=== PATIENT | female | born 1950 | race African-American/Black ===

== ENCOUNTER 2019-04-16 09:16 | Inpatient (IN) ==
--- NOTE | 2019-04-16 09:19 | PROVIDER DOCUMENTATION ---
HPI-General Adult - General Stated Complaint: V/D Time Seen by Provider: 04/16/19 09:18 Source: patient Allergies/Adverse Reactions: Patient Allergies Allergy/AdvReac Type Severity Reaction Status Date / Time No Known Allergies Allergy Verified 09/09/14 08:38 Home Medications: Home Medication List Medication Instructions Recorded Confirmed Last Taken Type Enalapril/Hydrochlorothiazide 0.5 tab PO QPM 09/29/12 09/10/14 09/10/14 05:00 History [Enalapril-Hctz 10-25 mg Tablet] Ergocalciferol (Vitamin D2) 50,000 unit PO Q7D 09/29/12 09/10/14 09/05/14 History [Vitamin D] Fexofenadine [Josephine] 180 mg PO PRN PRN 09/29/12 09/09/14 09/26/12 06:00 History Levothyroxine [Synthroid] 100 microgm PO QAM 09/29/12 09/10/14 09/09/14 History Metoprolol Succinate [Toprol Xl] 50 mg PO QPM 09/29/12 09/10/14 09/10/14 05:00 History Multivitamin with Minerals [One 1 each PO QAM 09/29/12 09/10/14 09/09/14 History Daily 50 Plus] Acetaminophen/Diphenhydramine 1 each PO HS 09/09/14 09/09/14 Unknown History [Tylenol Pm] Magnesium Cl D.r. [Slow-Mag] 64 mg PO BID #0 tablet 09/10/14 Unknown Rx Omeprazole 40 mg PO DAILY #0 capsule. 09/10/14 Unknown Rx Zinc 50 mg PO DAILY #0 tablet 09/10/14 Unknown Rx - History of Present Illness -Gen Adult Nature of Presenting Problems: Pt. is 68 yof that presents with c/o abd pain with N/V that began yesterday. Pt. reports some diarrhea and cannot remember her last normal BM. She reports not taking her BP medications this morning. She denies any other complaints. Location of Pain/Injury: reports: abdomen. denies: none, head, face, mouth, neck, chest, upper extremity, hand(s), back, pelvis, genitalia, lower extremity, feet, upper body, lower body, generalized, other Pain Radiation: reports: no radiation. denies: arm(s), back, buttocks, chest, epigastric, feet, groin, jaw, flank (L), legs (lower), LLQ, LUQ, neck, periumbilical, flank (R), RLQ, RUQ, shoulder(s), scapula, scrotal, sternal notch, suprapubic, legs (upper), urethral, vaginal, other Quality of Pain: reports: aching. denies: burning, pressure, tightness Severity: reports: moderate. denies: mild, severe Onset/Duration: reports: gradual, 24 hours ago Timing: reports: still present. denies: improving, intermittent, getting worse Context/Activities at Onset: reports: none. denies: light activity, moderate activity, vigorous activity, recent emotional stress, recent physical stress, recent trauma history, possible bad food, cold exposure, eating, out of country travel, rest, sleep, sexual activity, other Modifying Factors: improves with: nothing Associated Symptoms: reports: diarrhea, nausea, vomiting. denies: denies symptoms, anxiety, arm pain, back/neck pain, chest pain, constipation, cough, diaphoresis, dizziness, EENT symptoms, fatigue, fever/chills, genitourinary problems, headaches, heartburn, joint pain, loss of appetite, malaise, muscle aches, sinus congestion/drainage, rash, seizure, shortness of breath, sensory/motor loss, pain with inspiration, swelling/mass in abdomen, syncope, weakness, trouble walking, other Similar Symptoms Previously?: Yes Recently seen or treated by another doctor?: No Review of Systems - Adult - REVIEW OF SYSTEMS - ADULT Constitutional: reports: no symptoms reported Eyes: reports: no symptoms reported Ears, Nose, Mouth & Throat: reports: no symptoms reported Cardiovascular: reports: no symptoms reported Respiratory: reports: no symptoms reported Gastrointestinal: reports: see HPI, abdominal pain, diarrhea, nausea, vomiting. denies: constipation, difficulty swallowing, rectal bleeding Genitourinary: reports: no symptoms reported Musculoskeletal: reports: no symptoms reported Integumentary: reports: no symptoms reported Neurological: reports: no symptoms reported Psychiatric: reports: no symptoms reported Past History - Adult - PAST MEDICAL HISTORY-ADULT Review of Records: reports: Old Records Reviewed, Nursing Assessment Review, Medications Reviewed, Social history reviewed & non-contributory. - IMMUNIZATION STATUS Childhood Immunizations: See Nurse Assessment Flu Vaccine: See Nurse Assessment - FAMILY HISTORY Family History: reviewed, not pertinent - SOCIAL HISTORY Smoking: denies Physical Exam-General - PHYSICAL EXAM-ADULT Initial Vital Signs Reviewed: Yes - CONSTITUTIONAL General Appearance: alert, mild distress, obese. negative: anxious, slow to respond, obtunded, combative - EYES Eyes: PERRL/EOMI, pink conjunctivae - HEAD, EARS, NOSE, MOUTH & THROAT HENMT: normocephalic/atraumatic, moist mucous membranes - NECK Neck: non-tender, full range of motion, supple, normal inspection - RESPIRATORY Respiratory: lungs clear, normal breath sounds - CARDIOVASCULAR Cardiovascular: normal peripheral pulses, regular rate, rhythm, no edema - GASTROINTESTINAL (ABDOMEN) Abdominal Exam: soft, abnormal bowel sounds (hypoactive), tenderness (RUQ pain), hernia (Large ventral). negative: rigid, rebound, mass - LYMPHATIC Lymphatic: no adenopathy, axilla node tender, cervical node tenderness - MUSCULOSKELETAL Back Exam: normal inspection, no CVA tenderness, no vertebral tenderness Extremity: normal range of motion, non-tender, normal gait, normal inspection. negative: erythema, inflammation, swelling, tenderness Peripheral Pulses: radial (R): 2+, radial (L): 2+ - SKIN Integumentary: normal color, normal turgor, warm/dry - NEUROLOGIC Neurologic: grossly normal, no motor/sensory deficits - PSYCHIATRIC Psych/Mental Status: normal mood/affect, normal thought content, normal thought process, oriented x 3. negative: anxious, paranoid, tearful Progress - PLAN OF CARE/RESULTS Progress/Plan/Lab Results: Orders Category Date Time Status Saline Loc NOW Care 04/16/19 09:18 Ordered CBC WITH ELECTRONIC DIFF [HEME] Stat Lab 04/16/19 09:18 Uncollected CK PROFILE [SP CHEM] Stat Lab 04/16/19 09:18 Uncollected COMPREHENSIVE METABOLIC PANEL [CHEM] Stat Lab 04/16/19 09:18 Uncollected LIPASE [CHEM] Stat Lab 04/16/19 09:18 Uncollected URINALYSIS W/POSS RFLX CULT [URINALYSIS] Stat Lab 04/16/19 09:18 Uncollected Laboratory Tests 04/16/19 04/16/19 10:15 10:15 WBC 13.03 H RBC 4.97 Hgb 14.8 Hct 42.8 MCV 86.1 MCH 29.8 MCHC 34.6 RDW Std Deviation 13.2 Plt Count 359 MPV 9.5 Immature Gran % (Auto) 0.2 Neut % (Auto) 84.7 H Lymph % (Auto) 11.4 L [place] % (Auto) 3.6 Eos % (Auto) 0.0 Baso % (Auto) 0.1 Immature Gran # (Auto) 0.02 Neut # (Auto) 11.05 H Lymph # (Auto) 1.48 [place] # (Auto) 0.47 Eos # (Auto) 0.00 Baso # (Auto) 0.01 Sodium 135 L Potassium 3.6 Chloride 93 L Carbon Dioxide 22 L Anion Gap 20 BUN 18 Creatinine 1.1 H Estimated GFR/1.73 m2 60 BUN/Creatinine Ratio 16 Glucose 322 H Calculated Osmolality 284 Calcium 9.0 Total Bilirubin 0.50 AST 19 ALT 17 Alkaline Phosphatase 98 Creatine Kinase 104 Total Protein 8.1 Albumin 4.7 Globulin 3.4 Albumin/Globulin Ratio 1.4 Lipase 19 Sepsis protocol was ordered stating I was notified however I was not notified. I let the charge nurse know. Result Diagrams: 04/16/19 10:15 04/16/19 10:15 - XRAY 1 XRAY Study: Chest, Abdomen ([facility] - [address] [facility], [address] [address] [facility] - [address] [place] [address] Department of Imaging Patient: VIVIANA COELHO Date: 04/16/19MR#: [id number] : 1950DM Status: PRE ERAcct#: [id number] Age/Sex: 68/FRoom/Bed: Loc: ED Ordering Physician: Salud Davalos Family Physician: Amrik Tapia DO Reason for Procedure: abd pain Signed EXAM: FLAT/UPRIGHT ABD/1 VIEW CHEST 04/16/2019 HISTORY: abd pain TECHNIQUE: Flat and upright abdomen with PA chest COMMENT: There is some stool in the colon. The stomach is distended with gas. There is no small bowel dilatation and no evidence of organomegaly or mass is otherwise present. There is atelectasis present in the left lower lobe above the diaphragm. There are no previous radiographs available for comparison. IMPRESSION: The possibility of gastroparesis or gastric outlet obstruction cannot be excluded. Left lower lobe atelectasis. Electronically signed by Odell Hartmann 04/16/2019 10:11 AM 04/16/19 1011 Interpreting Physician: Odell Hartmann MD Dictated Date/Time: 04/16/19 1010 cc: Salud Daavlos; Amrik Tapia DO) XRAY Interpretation: See note - CT/MRI 1 CT Study: Abdomen, Pelvis ([facility] - [address] [place], [place] [id number] [facility] - [address] [place] [address] Department of Imaging Patient: VIVIANA COELHO Date: 04/16/19MR#: [id number] : 1950DM Status: [facility]#: [id number] Age/Sex: 68/FRoom/Bed: Loc: ED Ordering Physician: Salud Davalos Family Physician: Amrik Tapia DO Reason for Procedure: abd pain ___ Signed EXAM: CT ABD/PELVIS W/IV CONT ONLY INDICATION: abd pain TECHNIQUE: This exam was performed using automated exposure control, adjustment of mA or kV according to patient size, and/or use of iterative reconstruction technique. COMPARISON: None. FINDINGS: There has been a prior cholecystecto my. There is probably minimal hepatic steatosis. The spleen, pancreas, and adrenal glands are unremarkable. There is a small simple appearing left renal cyst. The kidneys are essentially unremarkable, otherwise. The urinary bladder is unremarkable. The reproductive tract is unremarkable as imaged. There has been a prior gastric bypass. There is a large ventral abdominal wall hernia containing multiple loops of small bowel as well as a loop of colon. There are several moderately distended loops of small bowel in the abdomen that is suspicious for at least partial obstruction. Although the mouth of the hernial sac is fairly wide, the point of obstruction may be in the hernia. No focal bowel wall thickening is appreciated. The stomach is moderately distended. An IVC filter is in place. There is no evidence of acute osseous abnormality. IMPRESSION: Large ventral abdominal wall hernia with several moderately distended loops of small bowel that is suspicious for obstruction. Electroni philipp signed by Davon Veras 04/16/2019 12:21 PM 04/16/19 1221 Interpreting Physician: Davon Veras MD Dictated Date/Time: 04/16/19 1214 cc: Salud Davalos; Amrik Tapia DO) CT Results: See note - CONSULTS/PCP/HOSPITALIST Notification #1 *Consult/PCP/Hospitalist*: Dr. Gonzalez Time Discussed: 13:23 (Had not called back at time of admission) Reason/Comments: Consult #2 Consult: Alecia Condon Time Discussed: 13:22 Reason/Comments: Admission Consult Disposition: Will see in ED, Admit Departure - Departure Date of Disposition Decision: 04/16/19 Time of Disposition Decision: 13:15 DIAGNOSIS: Hernia Bowel obstruction Qualifiers: Intestinal obstruction type: unspecified Intestinal obstruction extent: unspecified extent Qualified Code(s): K56.609 - Unspecified intestinal obstruction, unspecified as to partial versus complete obstruction Abdominal pain Qualifiers: Abdominal location: right upper quadrant Qualified Code(s): R10.11 - Right upper quadrant pain Disposition: ADMITTED INPATIENT 09 Certified Medical Emergency: Emergent Condition: Stable Referrals and Follow-Ups: Amrik Tapia DO [Primary Care Provider] - - Critical Care Note This patient required my direct & personal management of CC.: No Attestation - Physician/ DENNY Attestation Patient care was provided by Advanced Practice Provider:: Yes Advanced Practice Provider:: Salud Davalos Advanced Practice Provider documentation review:: The Mid-level provider documentation, treatment plan and medical decision making was reviewed by the physician who agrees with all treatment and medical decision making by the MLP. The physician spent face to face time with patient:: No Advanced Practice Provider documentation review:: Supervising physician onsite and consulted in the evaluation and care of this patient. The physician did not have a face to face encounter with the patient.
[2019-04-16] MEDS ORDERED: ZOFRAN IV ONE (09:32)
[2019-04-16] MEDS ORDERED: NS 1,000 ML IV ONE (09:32)
--- NOTE | 2019-04-16 10:13 | Diag Imaging Result Doc PS360 ---
EXAM: FLAT/UPRIGHT ABD/1 VIEW CHEST 04/16/2019 HISTORY: abd pain TECHNIQUE: Flat and upright abdomen with PA chest COMMENT: There is some stool in the colon. The stomach is distended with gas. There is no small bowel dilatation and no evidence of organomegaly or mass is otherwise present. There is atelectasis present in the left lower lobe above the diaphragm. There are no previous radiographs available for comparison. IMPRESSION: The possibility of gastroparesis or gastric outlet obstruction cannot be excluded. Left lower lobe atelectasis. Electronically signed by Odell Hartmann 04/16/2019 10:11 AM
[2019-04-16 10:30] LABS: BASO# 0.01 X1000 (0.0-0.2); BASO% 0.1 % (0.0-0.8); HEMATOCRIT 42.8 % (37.0-47.0); HEMOGLOBIN 14.8 g/dL (12.0-16.0); IMM GRAN# 0.02 X1000 (0.0-0.04); IMM GRAN% 0.2 % (0.0-0.5); LYMPH# 1.48 X1000 (1.2-3.4); LYMPH% 11.4 % (20.5-51.1); MCH 29.8 PG (27-31); MCHC 34.6 g/dL (33-37); MCV 86.1 FL (81-99); MONO# 0.47 X1000 (0.11-0.59); MONO% 3.6 % (1.7-9.3); MPV 9.5 FL (7.4-10.4); NEUT# 11.05 X1000 (1.4-6.5); NEUT% 84.7 % (42.2-75.2); PLT 359 X1000 (130-400); RBC 4.97 XMIL (4.2-5.4); RDW 13.2 % (11.5-14.5); WBC 13.03 X1000 (4.8-10.8)
[2019-04-16 10:53] LABS: ALB/GLOB RATIO 1.4; ALBUMIN 4.7 g/dL (3.5-5.0); CREATININE 1.1 mg/dL (0.5-0.9); POTASSIUM 3.6 mmol/L (3.5-5.1); TOTAL BILIRUBIN 0.5 mg/dL (0.20-1.00); TOTAL PROTEIN 8.1 g/dL (6.3-8.3)
--- NOTE | 2019-04-16 11:21 | Diag Imaging Result Doc PS360 ---
EXAM: CHEST-1 VIEW 04/16/2019 HISTORY: r/o sepsis TECHNIQUE: AP portable upright at 1112 COMMENT: There is no evidence of acute cardiac or pulmonary disease. The study is somewhat underexposed. Compared to 04/16/2019 has been no significant change. IMPRESSION: No evidence of acute disease. Electronically signed by Odell Hartmann 04/16/2019 11:18 AM
[2019-04-16] MEDS ORDERED: ZOSYN 3.375 GM in NS 50 ML IV ONE (12:12)
--- NOTE | 2019-04-16 12:24 | Diag Imaging Result Doc PS360 ---
EXAM: CT ABD/PELVIS W/IV CONT ONLY INDICATION: abd pain TECHNIQUE: This exam was performed using automated exposure control, adjustment of mA or kV according to patient size, and/or use of iterative reconstruction technique. COMPARISON: None. FINDINGS: There has been a prior cholecystectomy. There is probably minimal hepatic steatosis. The spleen, pancreas, and adrenal glands are unremarkable. There is a small simple appearing left renal cyst. The kidneys are essentially unremarkable, otherwise. The urinary bladder is unremarkable. The reproductive tract is unremarkable as imaged. There has been a prior gastric bypass. There is a large ventral abdominal wall hernia containing multiple loops of small bowel as well as a loop of colon. There are several moderately distended loops of small bowel in the abdomen that is suspicious for at least partial obstruction. Although the mouth of the hernial sac is fairly wide, the point of obstruction may be in the hernia. No focal bowel wall thickening is appreciated. The stomach is moderately distended. An IVC filter is in place. There is no evidence of acute osseous abnormality. IMPRESSION: Large ventral abdominal wall hernia with several moderately distended loops of small bowel that is suspicious for obstruction. Electronically signed by Davon Veras 04/16/2019 12:21 PM
[2019-04-16] MEDS ORDERED: OFIRMEV 1000 MG/ISOTONIC SOLN 1,000 MG/100 ML BOTTLE IV PRN (13:33)
[2019-04-16] MEDS ORDERED: ZOFRAN IV PRN (13:33)
[2019-04-16] MEDS ORDERED: SODIUM CHLORIDE 0.9% INJ PRN ×2 (13:33)
[2019-04-16] MEDS ORDERED: MORPHINE IV PRN (13:33)
[2019-04-16] MEDS ORDERED: PHENERGAN IV PRN (13:33)
[2019-04-16] MEDS ORDERED: APRESOLINE IV PRN (13:33)
[2019-04-16] MEDS: NS 1,000 ML IV SCH ×2 (17:44→21:36)
--- NOTE | 2019-04-16 18:32 | HISTORY AND PHYSICAL ---
PRIMARY CARE PROVIDER: Dr. Amrik Tapia. CHIEF COMPLAINT: Abdominal pain, vomiting, and diarrhea. HISTORY OF PRESENT ILLNESS: Ms. Lizzie Treviño is a 68-year-old female with a medical history of diabetes, hypertension, thoracic aortic aneurysm, hypothyroidism, vertigo, and seasonal allergies. She states that yesterday evening, she started having clear green vomiting, dark brown diarrhea, subjective fever, and chills. When she went to bed, she felt like she just could not get warm. She also had some burning around the umbilicus area, and then she woke up with the sweats this morning to the point her hair was wet. She states that she has spells like these every few months, mostly when she has over-eaten, but this time it was more significant. Imaging reveals that she has a large ventral abdominal wall hernia with several moderately distended loops of small bowel that is suspicious for obstruction. So, we will admit her, keep her n.p.o. for now, give her IV fluids and antiemetics, and consult Dr. Gonzalez for evaluation. Please note that she is a Gnosticist and will not accept blood products. PAST MEDICAL HISTORY: 1. Diabetes mellitus type 2. 2. Hypertension. 3. Thoracic aortic aneurysm. She states around 3 or 4 years ago, she was last evaluated and it was a little over 4 cm. 4. Hypothyroidism. 5. Vertigo. 6. Seasonal allergies. 7. GERD. SURGICAL HISTORY: 1. Gastric bypass in the year 2001. 2. Vaginal ablation. 3. Carpal tunnel surgery. 4. Cholecystectomy. SOCIAL HISTORY: Denies tobacco, alcohol, or illicit drug use. She states if she does drink alcohol, it might be once every 6 months and is usually just 1 drink to clear her sinuses. She is . Her in October 2018. FAMILY HISTORY: Mother had diabetes, coronary artery disease, and stroke in her early 70s. Father had prostate cancer and at the age of 94. ALLERGIES: No known drug allergies. HOME MEDICATIONS: Have not been reconciled yet. REVIEW OF SYSTEMS: Fourteen point review of systems are complete and all were negative for those mentioned above in HPI. PHYSICAL EXAMINATION: VITAL SIGNS: Temperature 98.5 degrees, heart rate 112, respiratory rate 16, blood pressure 139/85, O2 saturation 91% on room air. It looks like she got up to 100.2 degrees on her temperature. GENERAL: Ms. Lizzie Treviño is a 68-year-old female. She is in no acute distress. She is able to answer questions appropriately. HEENT: Atraumatic, normocephalic. Pupils equal, round, reactive to light. Extraocular movements intact. Mucous membranes are dry. NECK: Trachea midline. CARDIOVASCULAR: S1, S2. Tachycardic rate and rhythm. No rubs, gallops, murmurs. No lower extremity edema. +2 dorsalis and radial pulses. Negative JVD or carotid bruits. PULMONARY: Clear to auscultate bilateral breath sounds. No accessory muscle use or work of breathing noted. GI: Soft. Tender around the umbilical area. Positive bowel sounds x4. EXTREMITIES: Moves all extremities equally. Full range of motion. NEUROLOGIC: Alert and oriented x3. Follows commands. Sensory is intact. SKIN: Warm, dry, intact. LABORATORY DATA: White blood cells 13,000, hemoglobin 14, hematocrit 42, platelet count 359,000. Sodium 135, potassium is 3.6, BUN 18, creatinine is 1.1, glucose 322, calcium 9.0, bilirubin 0.50, AST 19, ALT 17, CK 104, troponin is less than 0.01. Albumin is 4.7, lipase 19, lactate 3.8. IMAGING: Abdominal x-ray: The possibility of gastroparesis or gastric outlet obstruction could not be excluded. There is left lower lobe atelectasis. Chest x-ray: No acute disease. Abdominopelvic CT: Large ventral abdominal wall hernia with several moderately distended loops of small bowel that is suspicious for obstruction. ASSESSMENT AND PLAN: 1. Large ventral hernia with suspected small-bowel obstruction. Dr. Gonzalez is consulted. Please note [facility]; WILL NOT ACCEPT BLOOD. So, she is hesitant about the possibility of having to possibly have surgery. Will do n.p.o. for now, intravenous fluid hydration. Since she has been here, her vomiting has somewhat resolved. I did discuss the possibility of needing the nasogastric tube if she continues to have vomiting. All of her home medications that I could convert to intravenous have been converted. 2. Diabetes mellitus type 2, with hyperglycemia. We will do a sliding scale insulin and pattern blood glucoses. 3. Hypertension. We have p.r.n. hydralazine and added scheduled metoprolol intravenous. 4. History of thoracic aortic aneurysm that she states around 3 or 4 years ago was just over 4 cm. No interventions on that noted. 5. Hypothyroidism. We will continue Synthroid, but change to intravenous. 6. Seasonal allergies. No home medications yet as she is n.p.o. 7. Deep venous thrombosis prophylaxis with sequential compression devices. Dictated by SIMEON Dhaliwal for Rehan Mae MD cc: SIMEON Dhaliwal MD Patient presenting with nausea, vomiting and diarrhea. Noted to have a large ventral hernia with small bowel obstruction. I agree with the assessment and plan of the CHILDCARE ATTENDANT. Dr. Carmelita GALARZA
[2019-04-16] MEDS: HUMULIN R SUBQ SCH ×2 (19:06→21:35)
--- NOTE | 2019-04-16 20:39 | CONSULTATION ---
DATE OF CONSULTATION: 04/16/2019 HISTORY OF PRESENT ILLNESS: Ms. Lizzie Treviño is a 68-year-old morbidly obese black female who was admitted through our emergency department today with nausea and vomiting. She reports that her nausea and vomiting began 24 hours prior to her presentation, but she also had some diarrhea. She was evaluated in our emergency department, which included a CT scan of her abdomen and pelvis which documented in her large upper midline ventral hernia with some moderately distended loops of small bowel within it. They documented a large defect of the hernia. We were asked to evaluate her. MEDICATIONS: Enalapril, vitamin D2, Josephine, Synthroid, Toprol, multivitamin, Tylenol p.m., magnesium, omeprazole and zinc. ALLERGIES: No known drug allergies. PAST MEDICAL HISTORY: She had an open gastric bypass. High blood pressure. Hypothyroidism. SOCIAL HISTORY: No smoking. FAMILY HISTORY: Her family history was reviewed with the patient and was noncontributory. REVIEW OF SYSTEMS: A 14-point review of systems was performed and was essentially negative except for the history of present illness. PHYSICAL EXAMINATION: General: On exam, Ms. Lizzie Treviño is a morbidly obese 68-year-old black female, resting comfortably in her bed. No NG tube is in place. She is she is not having any nausea and vomiting at this time. She is awake and cooperative. No abdominal pain. HEENT: She has no evidence of jaundice. No oral lesions. Lymph nodes: No cervical or supraclavicular lymphadenopathy. Heart: Her heart has regular rate. Lungs: Are clear to auscultation and percussion bilaterally. Abdomen: She has an upper midline incision. She has a midline ventral hernia secondary to this incision. This hernia is soft and it is reducible. There is no skin changes overlying this hernia. No evidence of erythema involving the anterior abdominal wall. There was no undue tenderness on palpation of this hernia. Rectal and vaginal exams: Were not performed. Extremities: She does have palpable femoral pulses. No significant peripheral edema. Neurologically: No focal deficit. IMPRESSION: Large ventral hernia status post upper midline incision for gastric bypass. The patient is morbidly obese on my exam this evening. The ventral hernia is reducible without evidence of strangulation. PLAN: We will not place an nasogastric tube. I agree with IV hydration and we will allow her to begin clear liquids. cc: Dorita Gonzalez MD
[2019-04-16 20:47] LABS: URINE SOURCE CLEAN CATCH
[2019-04-16 20:54] LABS: BILIRUBIN URINE NEGATIVE (NEGATIVE); BLOOD URINE TRACE (NEGATIVE); COLOR YELLOW; GLUCOSE URINE TRACE mg/dL (NEGATIVE); KETONE URINE TRACE mg/dL (NEGATIVE); LEUKOCYTES URINE MODERATE (NEGATIVE); NITRITE URINE POSITIVE (NEGATIVE); PROTEIN URINE 50 mg/dL (NEGATIVE); TURBIDITY URINE CLEAR (CLEAR); UROBILINOGEN URINE NORMAL (NORMAL)
[2019-04-16 20:56] LABS: UR EPITHELIAL CELLS <10 /HPF (<10); URINE BACTERIA 4+ /HPF; URINE RBC <10 /HPF (<10); URINE WBC TNTC /HPF (<10)
[2019-04-16] MEDS: LOPRESSOR IV SCH (21:34)
[2019-04-16] MEDS: TYLENOL PM PO SCH (21:42)
[2019-04-16] MEDS: ZOSYN 3.375 GM in NS 50 ML IV SCH (21:42)
[2019-04-17] MEDS: PROTONIX IV SCH ×3 (02:45→14:23)
[2019-04-17] MEDS: LOPRESSOR IV SCH ×3 (02:52→14:22)
[2019-04-17] MEDS: NS 1,000 ML IV SCH ×4 (02:56→22:13)
[2019-04-17] MEDS: SODIUM CHLORIDE 0.9% INJ SCH ×2 (02:56→14:23)
[2019-04-17] MEDS: ZOSYN 3.375 GM in NS 50 ML IV SCH ×3 (04:45→22:12)
[2019-04-17 06:59] LABS: BASO# 0.01 X1000 (0.0-0.2); BASO% 0.1 % (0.0-0.8); EOS# 0.07 X1000 (0.0-0.7); EOS% 0.8 % (0.0-10.0); HEMOGLOBIN 12.8 g/dL (12.0-16.0); IMM GRAN# 0.02 X1000 (0.0-0.04); IMM GRAN% 0.2 % (0.0-0.5); LYMPH# 2.91 X1000 (1.2-3.4); LYMPH% 31.7 % (20.5-51.1); MCH 29.9 PG (27-31); MCHC 33.7 g/dL (33-37); MCV 88.8 FL (81-99); MONO# 0.53 X1000 (0.11-0.59); MONO% 5.8 % (1.7-9.3); MPV 9.8 FL (7.4-10.4); NEUT# 5.63 X1000 (1.4-6.5); NEUT% 61.4 % (42.2-75.2); PLT 293 X1000 (130-400); RBC 4.28 XMIL (4.2-5.4); RDW 13.6 % (11.5-14.5); WBC 9.17 X1000 (4.8-10.8)
[2019-04-17] MEDS ORDERED: SYNTHROID IV SCH (07:00)
[2019-04-17 07:19] LABS: ALB/GLOB RATIO 1.4; ALBUMIN 3.7 g/dL (3.5-5.0); CALCIUM 7.9 mg/dL (8.8-10.2); CREATININE 1.1 mg/dL (0.5-0.9); MAGNESIUM 2.1 mg/dL (1.5-2.7); POTASSIUM 3.3 mmol/L (3.5-5.1); TOTAL BILIRUBIN 0.52 mg/dL (0.20-1.00); TOTAL PROTEIN 6.3 g/dL (6.3-8.3)
--- NOTE | 2019-04-17 07:20 | EKG Report ---
Test Performed on : 04/17/2019 06:01:54 AM Test Reason : RHYTHM CHANGE Blood Pressure : / mmHG Vent. Rate : 085 BPM Atrial Rate : 085 BPM P-R Int : 146 ms QRS Dur : 088 ms QT Int : 388 ms P-R-T Axes : -19 -59 152 degrees QTc Int : 461 ms Normal sinus rhythm. with sinus arrhythmia. Left anterior fascicular block ST & T wave abnormality, consider anterolateral ischemia Abnormal ECG When compared with ECG of 29-SEP-2012 12:12, ST now depressed in Lateral leads T wave inversion now evident in Lateral leads Confirmed by Jovany RESTREPO, Ronald Hernandez ([id number]) on 04/20/2019 9:26:29 AM
[2019-04-17] MEDS: HUMULIN R SUBQ SCH ×3 (08:05→17:08)
--- NOTE | 2019-04-17 09:03 | Diag Imaging Result Doc PS360 ---
EXAM: KUB ABDOMEN 04/17/2019 HISTORY: sbo TECHNIQUE: KUB three views COMMENT: There is gas in the stomach. There is some colonic and small bowel gas primarily on the left side of the abdomen. This is nonspecific in appearance. Compared to 04/16/2019 there is more small bowel and colonic gas but the stomach is somewhat less distended. IMPRESSION: Nonspecific abdomen. Electronically signed by Odell Hartmann 04/17/2019 9:01 AM
[2019-04-17] MEDS: POTASSIUM CHLORIDE 20 MEQ/SWI 20 MEQ/100 ML IVPB IV SCH ×2 (12:38→14:22)
--- NOTE | 2019-04-17 18:57 | PROGRESS NOTE ---
DATE: 04/17/2019 SUBJECTIVE/OBJECTIVE: Ms. Lizzie Treviño is morbidly obese. She has an upper midline ventral hernia from an open gastric bypass. She was admitted through our emergency department with a possible partial bowel obstruction related to this ventral hernia. On exam yesterday, I was able to reduce her hernia, and today, her hernia remains soft. She has had flatus and she is tolerating a liquid diet. She did not want her diet advanced to regular tonight. PLAN: Discharge her home tomorrow. She can follow up in our outpatient offices, but I would like her to lose weight prior to any repair of this ventral hernia. cc: Dorita Gonzalez MD
--- NOTE | 2019-04-17 19:57 | PROGRESS NOTE ---
DATE: 04/17/2019 INTERVAL HISTORY: Patient with no further nausea, vomiting or diarrhea. Tolerating clear liquids well. No new complaints. No acute events overnight. Discussed with the patient. She used to be on diabetes medication, but lost insurance and could no longer afford what they had her on, so she has been off her medication for a while. REVIEW OF SYSTEMS: Twelve point review of systems negative except as per interval history. LABS: WBC 9.1, hemoglobin 12.8, hematocrit 38.0, platelets 293,000. Sodium 140, potassium 3.3, bicarb 23, BUN 16, creatinine 1.1, glucose 162 to 195. VITAL SIGNS: T-max 99.1 degrees, pulse 75, respirations 15, blood pressure 123/59 O2 saturation 97% on room air. PHYSICAL EXAMINATION: General: No acute distress. Obese. Vital signs: As above. HEENT: Normocephalic, atraumatic. Moist mucous membranes. Cardiovascular: Regular rate and rhythm. No murmurs noted. Pulmonary: Clear to auscultation bilaterally. No wheezing, rales, or rhonchi noted. Abdomen: Soft. No longer tender. Bowel sounds positive. Extremities: Peripheral pulses intact. No clubbing or cyanosis. Neurologic: Cranial nerves grossly intact. No focal deficits identified. Psychiatric: Normal mood and affect. Awake, alert, oriented x3. ASSESSMENT AND PLAN: 1. Partial small bowel obstruction, large ventral hernia. Surgery on board and states that her hernia is easily reducible. She has been tolerating clear liquids without any difficulty. No further nausea, vomiting, or diarrhea, so we will go ahead and bump her up to a full liquid diet. If she does well with that, we can likely put her on a soft diet in the morning. If she does well with that, then hopefully can be discharged tomorrow. 2. Diabetes mellitus. Reasonable control. Will add sliding scale. Has been off her home medications for quite some time secondary to cost. We will likely discharge patient on low dose metformin. 3. Hypertension. Blood pressure has been pretty good really,, despite holding patient's home hydrochlorothiazide. Will continue home Toprol and monitor. 4. Hypothyroidism. Continue home Synthroid. We will change that back to p.o. 5. Thoracic aortic aneurysm, reportedly stable on last check, but it has been quite awhile since she has had it looked at, but no chest pain, dyspnea, or other sign that would be an acute issue. 6. Hypokalemia. Replete eating and monitor.
[2019-04-17] MEDS: TYLENOL PM PO SCH (22:12)
[2019-04-18] MEDS: HUMULIN R SUBQ SCH ×2 (00:06→06:46)
[2019-04-18] MEDS: LOPRESSOR IV SCH ×2 (00:06→02:07)
[2019-04-18] MEDS: SODIUM CHLORIDE 0.9% INJ SCH (02:06)
[2019-04-18] MEDS: PROTONIX IV SCH (02:06)
[2019-04-18] MEDS: ZOSYN 3.375 GM in NS 50 ML IV SCH ×2 (04:05→09:43)
[2019-04-18] MEDS: NS 1,000 ML IV SCH (06:14)
[2019-04-18] MEDS ORDERED: SYNTHROID PO SCH (07:00)
[2019-04-18 07:15] LABS: BASO# 0.03 X1000 (0.0-0.2); BASO% 0.5 % (0.0-0.8); EOS# 0.15 X1000 (0.0-0.7); EOS% 2.3 % (0.0-10.0); HEMATOCRIT 36.2 % (37.0-47.0); HEMOGLOBIN 12.3 g/dL (12.0-16.0); LYMPH# 2.28 X1000 (1.2-3.4); LYMPH% 34.9 % (20.5-51.1); MCH 30.1 PG (27-31); MCV 88.5 FL (81-99); MONO# 0.37 X1000 (0.11-0.59); MONO% 5.7 % (1.7-9.3); MPV 9.7 FL (7.4-10.4); NEUT% 56.6 % (42.2-75.2); PLT 270 X1000 (130-400); RBC 4.09 XMIL (4.2-5.4); RDW 13.2 % (11.5-14.5); WBC 6.53 X1000 (4.8-10.8)
[2019-04-18 07:18] LABS: AGAP 15; ALB/GLOB RATIO 1.5; ALBUMIN 3.7 g/dL (3.5-5.0); ALKALINE PHOSPHATASE 76 U/L (32-104); BUN 9 mg/dL (8-22); CALCIUM 8.2 mg/dL (8.8-10.2); CHLORIDE 104 mmol/L (98-107); COSMO 282; ESTIMATED GFR > 60; GLUCOSE 171 mg/dL (70-104); GOT 25 U/L (10-30); GPT 15 U/L (10-36); POTASSIUM 3.8 mmol/L (3.5-5.1); SODIUM 140 mmol/L (136-145); TCO2 21 mmol/L (25-35); TOTAL BILIRUBIN 0.62 mg/dL (0.20-1.00); TOTAL PROTEIN 6.1 g/dL (6.3-8.3)
[2019-04-18] MEDS ORDERED: TOPROL XL PO SCH (09:00)
--- NOTE | 2019-04-18 14:40 | GENERAL SURGERY PROGRESS NOTE ---
DATE: 04/18/2019 SUBJECTIVE: The patient denies abdominal pain, nausea, vomiting. She is eating and having bowel function. OBJECTIVE: She is afebrile. Vital signs are stable.General: She is awake, alert, oriented x3. No acute distress. GI: Soft, nontender. Reducible large ventral hernia. ASSESSMENT AND PLAN: A 68-year-old female with large reducible ventral hernia. There are no acute surgical indications. She can be discharged home. cc: Adryan Sawyer MD
[2019-04-18 15:33] VITALS: BP 129/88
--- NOTE | 2019-04-18 17:32 | EKG Report ---
Test Performed on : 04/18/2019 2:52:24 PM Test Reason : tachycardia Blood Pressure : / mmHG Vent. Rate : 071 BPM Atrial Rate : 071 BPM P-R Int : 196 ms QRS Dur : 096 ms QT Int : 406 ms P-R-T Axes : 060 -49 008 degrees QTc Int : 441 ms Normal sinus rhythm. Left anterior fascicular block Abnormal ECG When compared with ECG of 17-APR-2019 06:01, (Unconfirmed) ST no longer depressed in Lateral leads T wave inversion less evident in Anterolateral leads Confirmed by Jovany RESTREPO, Ronald Hernandez ([id number]) on 04/20/2019 9:28:35 AM
--- NOTE | 2019-04-18 20:31 | DISCHARGE SUMMARY ---
ADMISSION DATE: 04/16/2019 DISCHARGE DATE: 04/18/2019 DISCHARGE DIAGNOSIS: 1. Partial small bowel obstruction, large ventral hernia. 2. Diabetes. 3. Hypertension. 4. Hypothyroidism. 5. Thoracic aortic aneurysm. 6. Hypokalemia. 7. Morbid obesity with a body mass index of 50.5. PROCEDURES PERFORMED: Abdomen x-ray dated 04/16/2019 impression the possibility of gastroparesis or gastric outlet obstruction cannot be excluded. Left lower lobe atelectasis. Chest x-ray dated 04/16/2019 no evidence of acute disease. Abdomen and pelvis CT scan dated 04/16/2019 impression large ventral abdominal wall hernia with several moderately distended loops of small bowel that is suspicious for obstruction. Abdomen x-ray dated 04/17/2019 impression nonspecific abdomen. CONSULTS: Surgery Department Dr. Gonzalez/Dr. Sawyer. HOSPITAL COURSE: A 68-year-old female with a past medical history of diabetes, hypertension, thoracic aortic aneurysm, hypothyroidism, vertigo and seasonal allergies admitted on 04/16/2019, apparently the day before of admission she started having clear green vomiting, dark brown diarrhea suggestive fever and chills. She went to bed and she felt like she just could not get warm, she also had some burning around the umbilical area and she woke up sweating that morning, as per the patient she has been having this kind of spells every few months mostly when she has over eaten but this time it was more significant, images reveal a large ventral abdominal wall hernia with several moderately distended loops of small bowel that is suspicious for obstruction so this patient was admitted. She was placed NPO, she was getting some fluids, nausea medication and Dr. Gonzalez evaluated this patient and followed this patient closely. The patient was improving on a daily basis and actually she started having some bowel movements, she is tolerating p.o. Surgery Department has decided that this patient can be discharged home and follow up as an outpatient. Vital signs are stable as well as the laboratory, which is basically her baseline. At the moment of discharge this patient was on a stable medical condition, tolerating p.o. and ambulating by herself, we have recommended to lose some weight so she can get a surgery on that ventral hernia at some point and she seems to understand. VITAL SIGNS: Temperature 98.5 degrees, pulse 71, respiratory rate 20, blood pressure 129/88, oxygen saturation 100% on room air. HEENT: Head normocephalic, no trauma. PERRLA. Neck: Supple. No JVD. No masses. Central trachea. Chest: Clear to auscultation. No wheezing, no rales. Abdomen: Soft. She does have a large ventral hernia which is reducible, is nontender. Extremities: No edema, no clubbing, no cyanosis. Neurological: The patient is awake, alert, she is oriented x3. No focal neurological deficits. LABORATORY: WBC 6.5, hemoglobin 12.3, hematocrit 36.2, platelets 270,000. Sodium 140, potassium 3.8, chloride 104, bicarbonate 21, BUN 9, creatinine 1, glucose 171, calcium 8.2. DISCHARGE MEDICATIONS: Basically she will continue with her home medications acetaminophen/diphenhydramine at night 1 tablet, vitamin D3 3000 units p.o. q.a.m., Josephine 180 mg p.o. q.a.m., hydrochlorothiazide 25 mg p.o. q.a.m., Synthroid mcg p.o. daily, metformin 500 mg p.o. twice a day, metoprolol succinate 50 mg p.o. q.a.m., multivitamin 1 tablet p.o. q.a.m., omeprazole 40 mg p.o. daily and zinc 50 mg p.o. daily. TIME SPENT: 25 minutes. cc: Jose Crisostomo MD
== END 2019-04-18 17:44 | disposition home or self-care (01) | DRG 394 ==
LOC: ED 09:16 → 4N 14:03 → SUATTDRO 14:03
PROVIDERS: ATTEND Internal Medicine